=== PATIENT | female | born 1980 | race Asian ===

== ENCOUNTER 2017-04-03 11:26 | Emergency (ER) | payer BC, MEDICAID ==
[~2017-04-03] VITALS: Ht 167.6 cm; Wt 112.0 kg
[2017-04-03 11:28] VITALS: BP 152/88
== END 2017-04-03 13:14 | disposition home or self-care (01) ==
LOC: ED 12:53
DX: J20.8 Acute bronchitis due to other specified organisms (principal); M94.0 Chondrocostal junction syndrome [Tietze]; J30.2 Other seasonal allergic rhinitis
CPT/HCPCS: 71020; 99284